=== PATIENT | male | born 1955 | race Caucasian/White ===

== ENCOUNTER 2016-08-26 10:31 | Day surgery (SDC) | payer OTHER ==
[~2016-08-26] VITALS: Ht 188 cm; Wt 117.3 kg
[~2016-08-26 10:31] MED LIST: ASPI325T6 PO; LIPITOR 40MG TA40 MG PO; PEPCID 20MG TAB20 MG PO; PRINZIDE 25 MG-1 TAB PO
[2016-08-26 10:59] VITALS: BP 126/74; PULSE 67; TEMP 98
[2016-08-26 14:56] VITALS: BP 103/78; PULSE 66; TEMP 97.6
[2016-08-26 15:11] VITALS: BP 114/69; PULSE 63
[2016-08-26 15:26] VITALS: BP 116/74; PULSE 67
== END 2016-08-26 15:35 | disposition home or self-care (01) ==
LOC: SDCO 10:31
DX: C67.9 Malignant neoplasm of bladder, unspecified (principal); R82.8 Abnormal findings on cytological and histological examination of urine; I10 Essential (primary) hypertension; E78.5 Hyperlipidemia, unspecified
CPT/HCPCS: J0690; J1100; J2405; J2704; J3010; J7120; Q9967